=== PATIENT | male | born 1965 | race African-American/Black ===

== ENCOUNTER → 2016-09-10 | Outpatient (REF) ==
--- NOTE | 2016-09-10 10:19 | DI ---
EXAM: Chest two views HISTORY: [facility] annual screening COMPARISON: 09/14/2015 TECHNIQUE: Two views of the chest were performed FINDINGS: The lungs are clear. There is no pleural effusion or pneumothorax. The heart is normal in size. The mediastinal contour is normal. There are no acute abnormalities of the bones. IMPRESSION: No acute cardiopulmonary process.
== END ==
LOC: RAD 09:47
DX: Z02.89 Encounter for other administrative examinations (principal)

== ENCOUNTER 2017-05-14 15:37 | Outpatient (CLI) ==
[2017-05-14 16:46] VITALS: BMI 39.4
== END 2017-05-14 15:38 | disposition home or self-care (01) ==
LOC: DIETCN 15:37
PROVIDERS: ATTEND Family Medicine
DX: E11.9 Type 2 diabetes mellitus without complications (principal)

== ENCOUNTER 2017-08-07 07:53 | Outpatient (CLI) ==
--- NOTE | 2017-08-07 11:03 | DI ---
EXAM: Three views of the right toes. History: Right great toe pain. Findings: No acute fracture or dislocation. Moderate to severe narrowing of the first MTP joint wit h marginal sclerosis and osteophyte formation. No radiopaque foreign bodies. Impression: 1. No acute osseous abnormality. 2. 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
== END 2017-08-07 07:54 | disposition home or self-care (01) ==
LOC: RAD 07:53
PROVIDERS: ATTEND Family Medicine
DX: M79.674 Pain in right toe(s) (principal)

== ENCOUNTER 2017-09-07 13:12 | Outpatient (CLI) ==
--- NOTE | 2017-09-07 14:11 | DI ---
EXAM: PA and lateral views of the chest HISTORY: Annual physical COMPARISON: Chest Xray from 09/10/2016 FINDINGS: Lungs are clear with no lobar consolidation, failure, large effusion or significant atelec tasis. Cardiac and mediastinal silhouettes show no acute abnormality. No acute osseous or soft tiss ue abnormalities. IMPRESSION: No active disease.
== END 2017-09-07 13:13 | disposition home or self-care (01) ==
LOC: RAD 13:12
PROVIDERS: ATTEND Physician Assistant Medical
DX: Z02.89 Encounter for other administrative examinations (principal)

== ENCOUNTER 2018-06-07 15:30 | Outpatient (RCR) ==
--- NOTE | 2018-05-13 13:09 | RS.OPPTEV2 ---
Date of Note: 05/12/18 Visit #: 1 Number of visits approved by Insurance: NA Date of Evaluation: 05/12/18 Payer Source: Insurance ([employer]) Surgery Performed?: No Treatment Diagnosis: Cervicalgia History of Condition/Mechanism of Injury:: Reports ongoing neck and UE pain for years. He had a cervical fusion of at least one leave in 2011. Approximately three years ago he was getting injections in the neck from Pain Management, but due to little beneift. States he has lived with the pain and continued to work, but now the pain has gotten to the point that he has to do something about it. Prior Level of Function.....Patient was independent with: ADL's, Self Care, Work /Vocation, Caregiving, Ambulation/Mobility, Community Integration/Access Functional Limitations: Sleep, ADL's, Reaching, Pushing, Pulling, Lifting, Carrying, Standing, Community Access/Integration Current Subjective/complaints:: Patient reports constant discomfort. States neck and UE pain varies in intensity, depending on his activity. States he has headaches at times. He received a steroid injection and has two days left of a steroid pack. He reports the steroids have decreased his pain. He denies tingling or numbness, but states he does feel that he is weaker in his arms and fruit sorter than he should be. He has not had a recent MRI of his cervical spine at this time. He works at [employer] and can usually avoid strenous activity that will increase his pain, but sometimes he cannot avoid it. States he is ready to do whatever it takes to get relief of pain. He has difficulty sleeping due to neck and UE pain. Medical History Medical History: Hypertension, Diabetes, Arthritis (in most joints) Surgical History Comments:: Cervical fusion 2012 Smoking Status: Never smoker Hx Home Medications: Hydrocodone, Metoprolol, simvastatin,omeprazole, testosterone, zolpidem (ambien) Patient's Goals: His goal is to get some relief of neck and UE pain. Pain Assessment - Pain Description Pain Location: neck and UE's Pain Description: Tightness, Radiating, Aching Current Pain Intensity: 5/10 Worst Pain Intensity: 7/10 Functional Outcome Measure Neck Disability Index: 38 - G Codes & Severity Modifier G Codes & Modifier: NA Source of G Code score: NA Observation - Observation Posture: Forward Head, Rounded Shoulders, Scapula Asymmetry (left elevated) Handedness: Right - ROM Comments: Cervical extension is approximately 75% of normal range with increased discomfort into the left bicep region. Cervical flexion is WFL's with pulling felt on the posterior aspect of the spine. Cervical rotation to the left is approximately 60 degrees, rotation to the left 70-75 degrees. Bilateral UE AROM is WFL's. - Strength Cervical Extension: 4+ Good + Cervical Flexion: 4+ Good + Cervical Lateral Flexion: 4+ Good + Comments: UE MMT 5/5 throughout. - Special Tests Thoracic Outlet Test: Negative Left, Negative Right Enterprise Services Manager Strength Left Hand Enterprise Services Manager Strength: 100 lbs. Right Hand Enterprise Services Manager Strength: 105 lbs. Dynamometer Testing Position: 2nd Position Palpation Comments:: Moderate muscle guarding is present throughout the cervical spine, upper traps and middle traps. Reports he is not tender to touch along the back of the head throughout the neck. Does report some reproduction of discomfort into the left UE with Central PA's at C4-C5 region. Sensation - Sensation Comments: Reports sensation intact to light touch and deep pressure throughout bilateral UE's. Denies tingling. - Heat/Cryotherapy Treatment: Hot Pack (X 10 mins prior to traction) - Traction Treatment Method: Mechanical, Intermittent, Cervical Patient Position: Supine Amount of Force Applied: 16-17 lbs. Hold Time: 40 seconds Rest Time: 5 seconds Duration of treatment: 12 mins Traction Treatment Comment: No complaints following traction. Interventions - Exercise/Activities/Manual Therapy Exercises/Activities: None given today. Manual Therapy: NA - Charges Timed Code Treatment Minutes: 0 mins Total Treatment Time: 55 mins Procedures billed for this date of service:: EVAL Medium, mechanical traction EVALUATION COMPLEXITY LEVEL EVALUATION COMPLEXITY LEVEL: HISTORY: Medium (Hx Cervical fusion, Diabetes, HTN) , EXAM OF BODY SYSTEMS: Medium, CLINICAL PRESENTATION: Medium, CLINICAL DECISION MAKING: Medium Assessment Assessment: Patient presents to therapy with a diagnosis of Cervicalgia. He reports ongoing neck and UE pain. He reports constant discomfort, with intensity depending on his activity level. Reports sleep is moderately disturbed. He exhibits moderate muscle guarding throughout the cervical spine and upper traps. He shows symptoms of cervical radiculopathy, and should see improvement in his symptoms with therapy consisting of cervical traction, postural education, stretching, and cervical stability exercises. Patient Education: Education of diagnosis, Education of Plan of Care Rehab Potential: Good Short Term Goals Goal #1: Neck and UE pain decreased to less than constant. Goal to be met by: 05/26/18 Goal #2: Pt to demonstrate improved postural awareness. Goal to be met by: 05/26/18 Goal #3: Muscle tone in B upper traps and cervical paraspinals decreased to minimal. Goal to be met by: 05/26/18 Senior Care Goals Goal #1: Pt knows HEP and to continue ex's to maintain functional level at D/c. Goal to be met by: 06/26/18 Goal #2: Score on Neck Disability index improved to 18% impairment. Goal to be met by: 06/26/18 Goal #3: Pt to sleep through the night with minimal interruption from neck/UE pain. Goal to be met by: 06/26/18 Goal #4: Neck/UE pain 3/10 or less with daily home and work activities. Goal to be met by: 06/26/18 Plan - Treatment to be Provided Procedures: Therapeutic Exercises, Therapeutic Activity, Manual Therapy, Patient Education Modalities: Electrical Stimulation, Hot Packs, Mechanical Traction (Cervical ) - Treatment Plan Frequency: 3 X week Duration: 6 weeks Dates of Mold Sprayer Goals: 06/26/18 Expiration date of current Insurance Approval:: NA - Treatment Code (1) Cervicalgia Code(s): M54.2 - CERVICALGIA Comments: M54.2 (2) Cervical radiculopathy Code(s): M54.12 - RADICULOPATHY, CERVICAL REGION Comments: M54.12
--- NOTE | 2018-05-14 16:33 | RS.OPPTDN ---
Subjective Date of Note: 05/14/18 Visit #: 2 Number of visits approved by Insurance: 3x6 Date of Evaluation: 05/12/18 Payer Source: Insurance ([email or web address]) Treatment Diagnosis: Cervicalgia Current Subjective/complaints:: Patient c/o pain to the R side of neck and shoulder. Says unsure if it is way he slept or weather. Denies any symptoms from traction initiation. - Heat/Cryotherapy Treatment: Hot Pack (cervical x 20 mins in sitting) - Traction Treatment Method: Mechanical, Intermittent, Cervical Patient Position: Supine Amount of Force Applied: 18-19 Hold Time: 25 Rest Time: 5 Duration of treatment: 15 Traction Treatment Comment: 2 steps Interventions - Exercise/Activities/Manual Therapy Exercises/Activities: None given today. Manual Therapy: NA - Charges Timed Code Treatment Minutes: 5 Total Treatment Time: 40 Procedures billed for this date of service:: hp, mechanical traction Short Term Goals Goal #1: Neck and UE pain decreased to less than constant. Goal to be met by: 05/26/18 Goal #2: Pt to demonstrate improved postural awareness. Goal to be met by: 05/26/18 Goal #3: Muscle tone in B upper traps and cervical paraspinals decreased to minimal. Goal to be met by: 05/26/18 Retirement Goals Goal #1: Pt knows HEP and to continue ex's to maintain functional level at D/c. Goal to be met by: 06/26/18 Goal #2: Score on Neck Disability index improved to 18% impairment. Goal to be met by: 06/26/18 Goal #3: Pt to sleep through the night with minimal interruption from neck/UE pain. Goal to be met by: 06/26/18 Goal #4: Neck/UE pain 3/10 or less with daily home and work activities. Goal to be met by: 06/26/18 Plan Dates of Operations Specialists Goals: 06/26/18 Expiration date of current Insurance Approval:: 06/26/18 PLAN: Progress traction and work towards postural strengthening. Patient instructed in better postural mechanics by avoiding excessive cervical flexion while on phone/reading and hold item at eye level. Instructed in chin tucks/ cervical retraction and scap adduction.
--- NOTE | 2018-05-17 16:45 | RS.OPPTDN ---
Subjective Date of Note: 05/17/18 Visit #: 3 Number of visits approved by Insurance: 3x6 Date of Evaluation: 05/12/18 Payer Source: Insurance ([employer]) Treatment Diagnosis: Cervicalgia Current Subjective/complaints:: Patient says he has to prop his head up at night and sometimes goes to sleep this way. Pain and a "scary feeling" awakens him describing "weird" feeling to the back of his head up to his eyes. He says he does not think it is numbness or tingling. States he doesn't know what traction should feel like and unsure if it is helping, but adds he wants to do whatever he can to help his pain and wants to progress with it. - Heat/Cryotherapy Treatment: Hot Pack (cervical x 20 mins in sitting) - Traction Treatment Method: Mechanical, Intermittent, Cervical Patient Position: Supine Amount of Force Applied: 20-21 Hold Time: 30 Rest Time: 5 Duration of treatment: 20 Traction Treatment Comment: Readjusted after 15 mins x 3. At final adjustment pt gained more relief. Interventions - Exercise/Activities/Manual Therapy Exercises/Activities: Educated patient on propping up pillows behind upper back and neck so that it did not cause excessive cervical flexion. Manual Therapy: NA - Charges Timed Code Treatment Minutes: 10 Total Treatment Time: 40 Procedures billed for this date of service:: hp, mechanical traction Assessment: Patient appears to be elvis progression of traction. Today, we had to readjust position a few times, but were successful with appropriate pull. He should be able to elvis increasing poundage to relieve his pain and encouraged proper pillow positioning to avoid increased cervical flexion and awakening with worsened symptoms. Patient Education: Home Exercise Program, Education of Plan of Care Patient demonstrates compliance with HEP?: Yes Short Term Goals Goal #1: Neck and UE pain decreased to less than constant. Goal to be met by: 05/26/18 Goal #2: Pt to demonstrate improved postural awareness. Goal to be met by: 05/26/18 Goal #3: Muscle tone in B upper traps and cervical paraspinals decreased to minimal. Goal to be met by: 05/26/18 Project Manager Senior Goals Goal #1: Pt knows HEP and to continue ex's to maintain functional level at D/c. Goal to be met by: 06/26/18 Goal #2: Score on Neck Disability index improved to 18% impairment. Goal to be met by: 06/26/18 Goal #3: Pt to sleep through the night with minimal interruption from neck/UE pain. Goal to be met by: 06/26/18 Goal #4: Neck/UE pain 3/10 or less with daily home and work activities. Goal to be met by: 06/26/18 Plan Dates of Project Manager Senior Goals: 06/26/18 Expiration date of current Insurance Approval:: 06/26/18 PLAN: continue with progression of traction and postural strengthening.
--- NOTE | 2018-05-20 15:17 | RS.OPPTDN ---
Subjective Date of Note: 05/19/18 Visit #: 4 Number of visits approved by Insurance: 3x6 Date of Evaluation: 05/12/18 Payer Source: Insurance ([employer]) Treatment Diagnosis: Cervicalgia Current Subjective/complaints:: Patient says he has a new med to add to his list , Diclofenac for his pain. He says he is unable to see if it helps yet because he just began taking it. He says he has felt good after last few traction sessions and is looking forward to progressing weight. - Heat/Cryotherapy Treatment: Hot Pack (cervical x 20 mins in sitting) - Traction Treatment Method: Mechanical, Intermittent, Cervical Patient Position: Supine Amount of Force Applied: 22-23 Hold Time: 30 Rest Time: 5 Duration of treatment: 20 Traction Treatment Comment: 2 steps Interventions - Exercise/Activities/Manual Therapy Exercises/Activities: Continued with postural mechanics/techniques to ease neck pain and irritation. Discussed and reviewed HEP. Total minutes of Exercise: 6 Manual Therapy: NA - Charges Timed Code Treatment Minutes: 6 Total Treatment Time: 46 Procedures billed for this date of service:: hp, mechanical traction Assessment: Patient continues to elvis progression of cervical traction without c/ o. Patient verbalizing relief of tightness today with treatment. He is demo improved postural techniques in sitting while looking at phone during session. Patient Education: Education of diagnosis, Body/Joint mechanics, Home Exercise Program, Education of Plan of Care Patient demonstrates compliance with HEP?: Yes Short Term Goals Goal #1: Neck and UE pain decreased to less than constant. Goal to be met by: 05/26/18 Progress towards Goal:: Progressing Goal #2: Pt to demonstrate improved postural awareness. Goal to be met by: 05/26/18 Progress towards Goal:: Progressing Goal #3: Muscle tone in B upper traps and cervical paraspinals decreased to minimal. Goal to be met by: 05/26/18 Analyst Market Intelligence Goals Goal #1: Pt knows HEP and to continue ex's to maintain functional level at D/c. Goal to be met by: 06/26/18 Goal #2: Score on Neck Disability index improved to 18% impairment. Goal to be met by: 06/26/18 Goal #3: Pt to sleep through the night with minimal interruption from neck/UE pain. Goal to be met by: 06/26/18 Goal #4: Neck/UE pain 3/10 or less with daily home and work activities. Goal to be met by: 06/26/18 Plan Dates of Analyst Market Intelligence Goals: 06/26/18 Expiration date of current Insurance Approval:: 06/26/18 PLAN: Patient to continue with progression of traction to alleviate symptoms and further improve cervical mm tightness.
--- NOTE | 2018-05-21 16:43 | RS.OPPTDN ---
Subjective Date of Note: 05/21/18 Visit #: 5 Number of visits approved by Insurance: 3x6 Date of Evaluation: 05/12/18 Payer Source: Insurance ([employer]) Treatment Diagnosis: Cervicalgia Current Subjective/complaints:: Patient says last night was the first night he actually slept all night. He says he is "giving credit to everything." He says he's unsure if it is because of the steroid or PT or both. He continues to be positive about PT sessions and progressing traction. - Heat/Cryotherapy Treatment: Hot Pack (cervical x 20 mins in sitting) - Traction Treatment Method: Mechanical, Intermittent, Cervical Patient Position: Supine Amount of Force Applied: 23-24 Hold Time: 40 Rest Time: 5 Duration of treatment: 20 Interventions - Exercise/Activities/Manual Therapy Exercises/Activities: REassessed cspine ROM and muscle guarding. Patient remains with moderate increase in muscle tone bilateral UT. All Cervical SBing and rotation causes soreness at end range and tight, but L cervical rotation is more easily performed than all other motions and with less tightness. Watch Crystal Grinder remains unchanged at ~100 to 105# bilaterally with R hand dominant and 105#. Total minutes of Exercise: 10 Manual Therapy: NA - Charges Timed Code Treatment Minutes: 10 Total Treatment Time: 50 Procedures billed for this date of service:: hp, mechanical traction, Assessment: Patient remains with moderate increase in muscle tone bilateral UT. All Cervical SBing and rotation causes soreness at end range and tight, but L cervical rotation is more easily performed than all other motions and with less tightness. Watch Crystal Grinder remains unchanged at ~100 to 105# bilaterally with R hand dominant and 105#. May add estim to assist with muscle guarding next session. He is having less disruptive sleep and was able to sleep the whole night last night. Patient Education: Home Exercise Program, Education of Plan of Care Patient demonstrates compliance with HEP?: Yes Short Term Goals Goal #1: Neck and UE pain decreased to less than constant. Goal to be met by: 05/26/18 Progress towards Goal:: Progressing Goal #2: Pt to demonstrate improved postural awareness. Goal to be met by: 05/26/18 Progress towards Goal:: Progressing Goal #3: Muscle tone in B upper traps and cervical paraspinals decreased to minimal. Goal to be met by: 05/26/18 [facility] Goals Goal #1: Pt knows HEP and to continue ex's to maintain functional level at D/c. Goal to be met by: 06/26/18 Goal #2: Score on Neck Disability index improved to 18% impairment. Goal to be met by: 06/26/18 Goal #3: Pt to sleep through the night with minimal interruption from neck/UE pain. Goal to be met by: 06/26/18 Goal #4: Neck/UE pain 3/10 or less with daily home and work activities. Goal to be met by: 06/26/18 Plan Dates of [facility] Goals: 06/26/18 Expiration date of current Insurance Approval:: 06/26/18 PLAN: Continue progressing traction. May include estim and therex next session.
--- NOTE | 2018-05-25 10:41 | RS.OPPTDN ---
Subjective Date of Note: 05/24/18 Visit #: 6 Number of visits approved by Insurance: na Date of Evaluation: 05/12/18 Payer Source: Insurance ([employer]) Treatment Diagnosis: Cervicalgia Current Subjective/complaints:: Patient says he is doing very good. Reports he can tell his neck is not as tight and is happy with his progress so far. He confirms he is working on HEP. - Heat/Cryotherapy Treatment: Hot Pack (cervical x 20 mins in sitting) Interventions - Exercise/Activities/Manual Therapy Exercises/Activities: Patient receives passive stretching for SB and rotation bilaterally. Cervical retraction isometrics and SB isometrics bilaterally 2x5. Shoulder shrugs and scap adduction x 10. Green tband on 1# wand for scap retraction x 12. Patient received education on addition of therex today and HEP of continued proper postural mechanics and traction. Total minutes of Exercise: 10 Manual Therapy: NA - Charges Timed Code Treatment Minutes: 10 Total Treatment Time: 50 Procedures billed for this date of service:: hp, mechanical traction, ex Assessment: Patient demo improved postural awareness holding items at eye level and less cervical flexion. He is responding well to cervical traction and so far pleased with progress. He is able to elvis increased stretching with cspine ROM with less difficulty and soreness than last week. Will continue to progress weight on traction and therex adding postural strengthening with tbands next session. Patient Education: Education of diagnosis, Body/Joint mechanics, Home Exercise Program, Education of Plan of Care Patient demonstrates compliance with HEP?: Yes Short Term Goals Goal #1: Neck and UE pain decreased to less than constant. Goal to be met by: 05/26/18 Progress towards Goal:: Progressing Goal #2: Pt to demonstrate improved postural awareness. Goal to be met by: 05/26/18 Progress towards Goal:: Progressing Goal #3: Muscle tone in B upper traps and cervical paraspinals decreased to minimal. Goal to be met by: 05/26/18 Long-Term Goals Goal #1: Pt knows HEP and to continue ex's to maintain functional level at D/c. Goal to be met by: 06/26/18 Goal #2: Score on Neck Disability index improved to 18% impairment. Goal to be met by: 06/26/18 Goal #3: Pt to sleep through the night with minimal interruption from neck/UE pain. Goal to be met by: 06/26/18 Goal #4: Neck/UE pain 3/10 or less with daily home and work activities. Goal to be met by: 06/26/18 Plan Dates of Server Software Engineer Goals: 06/26/18 Expiration date of current Insurance Approval:: 06/26/18 PLAN: Patient to continue advancing therex and traction for cspine to reduce pain and muscle guarding.
--- NOTE | 2018-05-26 16:29 | RS.OPPTDN ---
Subjective Date of Note: 05/26/18 Visit #: 7 Number of visits approved by Insurance: NA Date of Evaluation: 05/12/18 Payer Source: Insurance ([employer]) Treatment Diagnosis: Cervicalgia Current Subjective/complaints:: Patient reports the pain varies ,dependent upon amount of activity throughout the day.He currrently has no radiating pain into the UE's. Pain Assessment - Pain Description Pain Location: cervical Pain Description: Dull, Aching, Chronic Current Pain Intensity: 5/10 - Heat/Cryotherapy Treatment: Hot Pack (20 mins. prior to traction) - Traction Treatment Method: Mechanical, Intermittent, Cervical Patient Position: Supine Amount of Force Applied: 25# Hold Time: 40 secs. Rest Time: 5 secs. Duration of treatment: 20 mins. Traction Treatment Comment: Tolerates well,but does not reduce the pain today. Interventions - Exercise/Activities/Manual Therapy Exercises/Activities: HEP review of chin tucks,cervical retraction ,rotation , lateral flexion,standing corner stretches ,resting on towel roll up and down the spine for gravity assisted stretch. Total minutes of Exercise: 0 Manual Therapy: NA Total minutes of Manual Therapy: 0 - Charges Timed Code Treatment Minutes: 20 Total Treatment Time: 40 Procedures billed for this date of service:: hp,traction Assessment: Patient reports no pain into the UE's today ,but the cervical pain is the same before and after treatment today.He is attentive to recommendations regarding HEP and pain control.He is not sleeping well,reports frequently having to re-position for comfort. Patient Education: Education of diagnosis, Body/Joint mechanics, Home Exercise Program, Home Safety, Activity Modification, Education of Plan of Care Patient demonstrates compliance with HEP?: Yes Short Term Goals Goal #1: Neck and UE pain decreased to less than constant. Goal to be met by: 05/26/18 Progress towards Goal:: Progressing Goal #2: Pt to demonstrate improved postural awareness. Goal to be met by: 05/26/18 Progress towards Goal:: Progressing Goal #3: Muscle tone in B upper traps and cervical paraspinals decreased to minimal. Goal to be met by: 05/26/18 Military Science Teacher Goals Goal #1: Pt knows HEP and to continue ex's to maintain functional level at D/c. Goal to be met by: 06/26/18 Progress towards goal: Progressing Goal #2: Score on Neck Disability index improved to 18% impairment. Goal to be met by: 06/26/18 Goal #3: Pt to sleep through the night with minimal interruption from neck/UE pain. Goal to be met by: 06/26/18 Progress towards goal: No Change Goal #4: Neck/UE pain 3/10 or less with daily home and work activities. Goal to be met by: 06/26/18 Plan Dates of [facility] Goals: 06/26/18 Expiration date of current Insurance Approval:: NA PLAN: Cont. skilled PT to reduce/eliminate cervical pain.
--- NOTE | 2018-05-28 16:47 | RS.OPPTDN ---
Subjective Date of Note: 05/28/18 Visit #: 8 Number of visits approved by Insurance: 3x6 Date of Evaluation: 05/12/18 Payer Source: Insurance ([employer]) Treatment Diagnosis: Cervicalgia Current Subjective/complaints:: Patient says he feels traction is still helping , especially with increased poundage the past few visits. 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 - Heat/Cryotherapy Treatment: Hot Pack (moist heat to the cervical region x 20 mins in sitting prior to traction.) - Traction Treatment Method: Mechanical, Intermittent, Cervical Patient Position: Supine Amount of Force Applied: 26 Hold Time: 35 Rest Time: 5 Duration of treatment: 20 Interventions - Exercise/Activities/Manual Therapy Exercises/Activities: HEP review of chin tucks,cervical retraction ,rotation , lateral flexion,standing corner stretches ,resting on towel roll up and down the spine for gravity assisted stretch. Manual Therapy: NA - Charges Timed Code Treatment Minutes: 0 Total Treatment Time: 40 Procedures billed for this date of service:: hp, mechanical traction Assessment: Patient elvis increased poundage well today with experiencing greater pain relief today. He denies UE symptoms. Work environment does influence pain and does move to/from low back to upper back and neck depending on activity. Patient Education: Home Exercise Program, Education of Plan of Care Patient demonstrates compliance with HEP?: Yes Short Term Goals Goal #1: Neck and UE pain decreased to less than constant. Goal to be met by: 05/26/18 Progress towards Goal:: Progressing Goal #2: Pt to demonstrate improved postural awareness. Goal to be met by: 05/26/18 Progress towards Goal:: Progressing Goal #3: Muscle tone in B upper traps and cervical paraspinals decreased to minimal. Goal to be met by: 05/26/18 Detention Goals Goal #1: Pt knows HEP and to continue ex's to maintain functional level at D/c. Goal to be met by: 06/26/18 Progress towards goal: Progressing Goal #2: Score on Neck Disability index improved to 18% impairment. Goal to be met by: 06/26/18 Goal #3: Pt to sleep through the night with minimal interruption from neck/UE pain. Goal to be met by: 06/26/18 Progress towards goal: No Change Goal #4: Neck/UE pain 3/10 or less with daily home and work activities. Goal to be met by: 06/26/18 Plan Dates of Filling Machine Tender Goals: 06/26/18 Expiration date of current Insurance Approval:: 06/26/18 PLAN: Patient to continue advancing traction and postural strengthening. He maintains good awareness consistently while here avoiding excessive cervical flexion, holding items at eye level.
--- NOTE | 2018-06-02 16:48 | RS.OPPTDN ---
Subjective Date of Note: 06/02/18 Visit #: 9 Number of visits approved by Insurance: 3x6, Reassess at 10th Date of Evaluation: 05/12/18 Payer Source: Insurance ([employer]) Treatment Diagnosis: Cervicalgia Current Subjective/complaints:: Patient says his symptoms are still constant, but they have decreased to very mild now. He says he has no radicular symptoms to either arm and no pain extending up to the head. He is open to looking into obtaining a home traction unit. - Heat/Cryotherapy Treatment: Hot Pack (20 mins cervical in sitting prior to traction) - Traction Treatment Method: Mechanical, Intermittent, Cervical Patient Position: Supine Interventions - Exercise/Activities/Manual Therapy Exercises/Activities: Review HEP, postural mechanics/techniques. Education on diagnosis, optional home traction unit if MD recommends. Manual Therapy: NA - Charges Timed Code Treatment Minutes: 10 Total Treatment Time: 50 Procedures billed for this date of service:: hp, mechanical traction, Assessment: Patient required traction to be re adjusted once during session. He continues to voice improvement in pain level and symptoms are localized to the neck and base of occiput. He maintains moderate increase in muscle tone, but uncertain if this is an actual increase or normal for his build. We will have him complete his reassessment from evaluation consisting of Neck Disability Index to verify any change in function. Progress HEP at that point if needed. Patient Education: Home Exercise Program, Education of Plan of Care Patient demonstrates compliance with HEP?: Yes Short Term Goals Goal #1: Neck and UE pain decreased to less than constant. Goal to be met by: 05/26/18 Progress towards Goal:: Met Comments:: Patient reports today that symptoms to the UE are gone, but remain at neck. Goal #2: Pt to demonstrate improved postural awareness. Goal to be met by: 05/26/18 Progress towards Goal:: Progressing Goal #3: Muscle tone in B upper traps and cervical paraspinals decreased to minimal. Goal to be met by: 05/26/18 Progress towards Goal:: No Change ((continued) or normal) Comments:: maintains moderate muscle tone, but unsure if this is actually an increase Baggageman Goals Goal #1: Pt knows HEP and to continue ex's to maintain functional level at D/c. Goal to be met by: 06/26/18 Progress towards goal: Progressing Goal #2: Score on Neck Disability index improved to 18% impairment. Goal to be met by: 06/26/18 Comments: REassess next session Goal #3: Pt to sleep through the night with minimal interruption from neck/UE pain. Goal to be met by: 06/26/18 Progress towards goal: No Change Goal #4: Neck/UE pain 3/10 or less with daily home and work activities. Goal to be met by: 06/26/18 Plan Dates of Baggageman Goals: 06/26/18 Expiration date of current Insurance Approval:: 06/26/18 PLAN: Continue x 1 more week possibly based on reassessment next session.
--- NOTE | 2018-06-07 15:30 | RS.OPPTDN ---
Subjective Date of Note: 06/04/18 Visit #: 10 Number of visits approved by Insurance: 18 Date of Evaluation: 05/12/18 Payer Source: Insurance ([employer]) Treatment Diagnosis: Cervicalgia Current Subjective/complaints:: Patient says his pain is no longer in his L UE unless he pushes on his cspine. He says he still has tightness to his neck muscles, but says therapy has helped him a lot. He reports wanting to have his MRI done so that he may see if he should have another cervical procedure or if "this is the best he is going to be and I will accept that." - Treatment Modality: Electrical Stim Unattended Parameters/Method Applied: hivolt 2 small and 2 large electrodes @ 220-225 pk volts x 20 mins to bilateral cervical paraspinals and UT prior to traction. Patient Position: Sitting - Heat/Cryotherapy Treatment: Hot Pack - Traction Treatment Method: Mechanical, Intermittent, Cervical Patient Position: Supine Amount of Force Applied: 26 Hold Time: 40 Rest Time: 5 Duration of treatment: 20 Traction Treatment Comment: Monitored pt throughout treatment due to previous time of needing to readjust sled Interventions - Exercise/Activities/Manual Therapy Exercises/Activities: Review HEP, postural mechanics/techniques. Education on diagnosis, optional home traction unit if MD recommends. Manual Therapy: NA - Charges Timed Code Treatment Minutes: 20 Total Treatment Time: 40 Procedures billed for this date of service:: hp, estim (un), traction ( mechanical) Assessment: Patient demo localization of symptoms unless he applies moderate pressure to the UT. He admits relief with traction and continues to demo good body and postural mechanics. Patient to complete reassessment next session. Patient Education: Education of Plan of Care Patient demonstrates compliance with HEP?: Yes Short Term Goals Goal #1: Neck and UE pain decreased to less than constant. Goal to be met by: 05/26/18 Progress towards Goal:: Met Goal #2: Pt to demonstrate improved postural awareness. Goal to be met by: 05/26/18 Progress towards Goal:: Progressing Goal #3: Muscle tone in B upper traps and cervical paraspinals decreased to minimal. Goal to be met by: 05/26/18 Progress towards Goal:: No Change ((continued) or normal) Comments:: maintains moderate guarding Soil Conservation Aide Goals Goal #1: Pt knows HEP and to continue ex's to maintain functional level at D/c. Goal to be met by: 06/26/18 Progress towards goal: Progressing Goal #2: Score on Neck Disability index improved to 18% impairment. Goal to be met by: 06/26/18 Goal #3: Pt to sleep through the night with minimal interruption from neck/UE pain. Goal to be met by: 06/26/18 Progress towards goal: No Change Goal #4: Neck/UE pain 3/10 or less with daily home and work activities. Goal to be met by: 06/26/18 Plan Dates of Soil Conservation Aide Goals: 06/26/18 Expiration date of current Insurance Approval:: 06/26/18 PLAN: Patient to complete reassessment next session. Schedule BIW next week and prepare for Discharge.
--- NOTE | 2018-06-08 10:47 | RS.OPPTDN ---
Subjective Date of Note: 06/07/18 Visit #: 11 Number of visits approved by Insurance: 3x6 (stopping at 12th) Date of Evaluation: 05/12/18 Payer Source: Insurance ([employer]) Treatment Diagnosis: Cervicalgia Current Subjective/complaints:: Patient says he feels beginning estim seemed to help him at work today and yesterday. 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 He says he wants to continue estim and may look into borrowing/obtaining home cervical traction unit in a few weeks after discharged. - Treatment Modality: Electrical Stim Unattended Parameters/Method Applied: 2 small pads at cervical paraspinals and 2 large at UT Hivolt @ 225-240 pk volts x 20 mins Patient Position: Sitting - Heat/Cryotherapy Treatment: Hot Pack (cervical with estim) - Traction Treatment Method: Mechanical (Supervised during entire session to readjust traction if needed.), Intermittent, Cervical Patient Position: Supine Amount of Force Applied: 26 Hold Time: 40 Rest Time: 5 Duration of treatment: 20 Interventions - Exercise/Activities/Manual Therapy Exercises/Activities: Review HEP, postural mechanics/techniques. Education on optional home traction unit if MD recommends and to plan on reassessment next session with that probably being his final treatment. Manual Therapy: NA - Charges Timed Code Treatment Minutes: 20 Total Treatment Time: 40 Procedures billed for this date of service:: hp, estim (un), mechanical traction Assessment: Patient appears to be responding to estim as well elvis work duties slightly better. Patient is attentive with all recommendations. He will complete Functional Index next session to clarify progress. Patient Education: Education of Plan of Care Patient demonstrates compliance with HEP?: Yes Short Term Goals Goal #1: Neck and UE pain decreased to less than constant. Goal to be met by: 05/26/18 Progress towards Goal:: Met Goal #2: Pt to demonstrate improved postural awareness. Goal to be met by: 05/26/18 Progress towards Goal:: Progressing Goal #3: Muscle tone in B upper traps and cervical paraspinals decreased to minimal. Goal to be met by: 05/26/18 Progress towards Goal:: Progressing (unsure if he maintains moderate muscle tone on avg or with current issue, pt voices it's better.) Account Liaison Goals Goal #1: Pt knows HEP and to continue ex's to maintain functional level at D/c. Goal to be met by: 06/26/18 Progress towards goal: Progressing Goal #2: Score on Neck Disability index improved to 18% impairment. Goal to be met by: 06/26/18 Comments: Assess next session Goal #3: Pt to sleep through the night with minimal interruption from neck/UE pain. Goal to be met by: 06/26/18 Progress towards goal: No Change Goal #4: Neck/UE pain 3/10 or less with daily home and work activities. Goal to be met by: 06/26/18 Plan Dates of Account Liaison Goals: 06/26/18 Expiration date of current Insurance Approval:: 06/26/18 PLAN: Complete 1 more session.
--- NOTE | 2018-06-10 15:36 | RS.CXNS ---
Date of scheduled appointment: 06/10/18 Type: Cancel Reason for Cancel/NS: Patient not feeling well. Rescheduled for next week on Thursday.
== END 2018-06-10 23:59 ==
PROVIDERS: ATTEND Orthopaedic Surgery Orthopaedic Surgery of the Spine
DX: M54.2 Cervicalgia (principal); M54.12 Radiculopathy, cervical region

== ENCOUNTER 2018-06-14 15:42 | Outpatient (RCR) | END 2018-07-08 23:59 | PROVIDERS: ATTEND Orthopaedic Surgery Orthopaedic Surgery of the Spine | DX: M54.2 Cervicalgia (principal) ==